=== PATIENT | male | born 1970 | race Caucasian/White ===

== ENCOUNTER → 2024-09-29 13:15 | Outpatient (REF) | payer OTHER, SELFPAY | LOC: RAD 13:15 | PROVIDERS: ATTENDING PHYSICIAN Physician Assistant | DX: M25.512 Pain in left shoulder (principal) | CPT/HCPCS: 73030 ==

== ENCOUNTER → 2024-10-04 06:41 | Outpatient (REF) | payer OTHER, SELFPAY | LOC: PAVMRI 06:41 | PROVIDERS: ATTENDING PHYSICIAN Physician Assistant | DX: M25.512 Pain in left shoulder (principal) | CPT/HCPCS: 73221 ==

== ENCOUNTER → 2024-12-02 07:41 | Outpatient (REF) | payer OTHER, SELFPAY | LOC: RAD 07:41 | PROVIDERS: ATTENDING PHYSICIAN Physician Assistant | DX: M25.562 Pain in left knee (principal) | CPT/HCPCS: 73564 ==

== ENCOUNTER → 2024-12-18 08:44 | Outpatient (REF) | payer OTHER, SELFPAY | LOC: MRI 3T 08:44 | PROVIDERS: ATTENDING PHYSICIAN Physician Assistant Surgical; FAMILY PHYSICIAN Physician Assistant | DX: M25.562 Pain in left knee (principal) | CPT/HCPCS: 73721 ==

== ENCOUNTER → 2025-02-09 12:34 | Outpatient (REF) | payer OTHER, SELFPAY ==
[2025-02-09 13:16] LABS: Hematocrit 41.8 % (39.0-52.0); Hemoglobin 14.8 g/dL (13.0-18.0); Mean Corp Hgb Conc. 35.4 g/dL (33.0-37.0); Mean Corpuscular Volume 90.3 fL (80.0-94.0); Nucleated Red Blood Cells % 0 % (-); Platelet Count 247 10^3/uL (130-400); Red Cell Dist. Width 12.1 % (11.5-14.5)
[2025-02-09 14:18] LABS: Blood Urea Nitrogen 19 mg/dl (9-20); Calcium 9.6 mg/dl (8.4-10.2); Carbon Dioxide 28 mmol/L (22-30); Chloride 104 mmol/L (98-107); Glucose 92 mg/dl (70-99); Potassium 4.7 mmol/L (3.5-5.1); Sodium 138 mmol/L (135-145); eGFR > 60.00
== END ==
LOC: REG 12:34
PROVIDERS: ATTENDING PHYSICIAN Specialist; FAMILY PHYSICIAN Physician Assistant
DX: Z01.818 Encounter for other preprocedural examination (principal)
CPT/HCPCS: 36415; 80048; 85025; 93005